=== PATIENT | female | born 1950 | race Caucasian/White ===

== ENCOUNTER → 2017-04-29 | Outpatient (CLI) | payer MEDICARE, BC | END | disposition home or self-care (01) | LOC: LABWHC1 13:36 | PROVIDERS: ATTEND Otolaryngology | DX: J30.89 Other allergic rhinitis (principal) | CPT/HCPCS: 36415 ==

== ENCOUNTER → 2018-04-14 | Outpatient (CLI) | payer MEDICARE, BC | END | disposition home or self-care (01) | LOC: LABWHC1 10:47 | PROVIDERS: ATTEND Otolaryngology | DX: Z53.9 Procedure and treatment not carried out, unspecified reason (principal) ==

== ENCOUNTER → 2018-09-04 | Outpatient (CLI) | payer MEDICARE, BC ==
[2018-09-04 13:56] VITALS: BP 159/67; PULSE 78; RESP 16; TEMP 97.8; BMI 16.7
--- NOTE | 2018-09-04 14:29 | P.GSHP ---
History of Present Illness H&P Date: 09/04/18 Chief Complaint: Abnormal left breast mammogram Nancy is a 67 year old white female who presented with a complaint of a nodular density in the left breast. She had bilateral mammograms performed in May 2018. On these radiographs there was a nodule noted in the left breast. She subsequently in June 2018 underwent diagnostic films of this area. This revealed a persistent oval nodular density in the upper outer aspect of the left breast. In July 2018 she underwent an ultrasound of this area which revealed the area of concern to be consistent with a cyst and the recommendation was a benign finding normal interval follow-up. The patient does not feel a specific mass right now in her breast. Of concern is the fact that she has been on Prempro for approximately 20 years. She states that she knows her breasts are dense and that she develops cyst in relationship to this. She has no history of any trauma or infection in her breast. Family history: 1. paternal cousin: breast cancer Hormonal history: Menarche: 15 Pregnancies: 0 Menopause: Started in the early 40s control pills: Negative Hormones: estrogen for over 20 years is still taking hormones (hot flashes) Past Surgical History: 1. D&C several Past Medical History: 1. HTN 2. arthritis 3. Osteopenia Social History smoke: none Alcohol: Negative Drugs: Negative - Constitutional Comment: BMI 16.8 Constitutional: Reports sweats - EENT Eyes: denies blurred vision, denies pain Ears: deny: decreased hearing, tinnitus Ears, nose, mouth and throat: Denies headache, Denies sore throat - Breasts Breasts: bilateral: as per HPI - Cardiovascular Cardiovascular: Reports high blood pressure - Respiratory Respiratory: Denies cough, Denies 7 - Gastrointestinal Gastrointestinal: Denies abdominal pain, Denies diarrhea, Denies nausea, Denies vomiting - Genitourinary (Female) Genitourinary: Denies dysuria, Denies hematuria - Menstruation Menstruation: Reports postmenopausal - Musculoskeletal Comment: arthritis - Integumentary Comment: skin cancer Integumentary: Denies pruritus, Denies rash - Neurological Neurological: Denies numbness, Denies weakness - Psychiatric Psychiatric: Reports anxiety, Denies depression - Endocrine Endocrine: Reports weight change, Denies fatigue - Hematologic/Lymphatic Comment: aspirin intermittently - Allergic/Immunologic Comment: food allergies Allergic/Immunologic: Reports seasonal allergies Past Medical History Past Medical History: Hyperlipidemia, Hypertension Additional Past Medical History / Comment(s): HX IBS History of Any Multi-Drug Resistant Organisms: None Reported Additional Past Surgical History / Comment(s): SINUS SX, D&C, Past Anesthesia/Blood Transfusion Reactions: Postoperative Nausea & Vomiting ( PONV) Additional Past Anesthesia/Blood Transfusion Reaction / Comment(s): STATES WAS ABLE TO HEAR AND FEEL LAST COLONOSCOPY FOR 5-7 SECONDS BEFORE SHE WENT OUT Smoking Status: Never smoker Medications and Allergies Home Medications Medication Instructions Recorded Confirmed Type Aspirin 81 mg PO DAILY 04/17/15 04/17/15 History James Cit/Mag/D3/Zn/Concession Stand Attendant/Quintin/Bor 1 tab PO DAILY 04/17/15 04/17/15 History [Citracal-Vit D + Magnesium Tab] Estrogen,Con/M-Progest Acet 0.5 tab PO DIRECTED 04/17/15 04/19/15 History [Prempro 0.3 mg-1.5 mg Tablet] Lisinopril [Zestril] 5 mg PO DAILY 04/17/15 04/19/15 History Meloxicam [Mobic] 7.5 mg PO DIRECTED PRN 04/17/15 04/17/15 History Denosumab [Prolia] 60 mg SQ ONCE 09/04/18 09/04/18 History Allergies Allergy/AdvReac Type Severity Reaction Status Date / Time nebivolol HCl [From Bystolic] Allergy Cough Verified 04/17/15 11:02 ibuprofen AdvReac STOMACH Verified 04/17/15 11:01 UPSET BONE DENSITY MEDS AdvReac STOMACH Uncoded 04/17/15 11:03 UPSET FOBIC AdvReac STOMACH Uncoded 04/17/15 11:02 UPSET Surgical - Exam Vital Signs Temp Pulse Resp BP Pulse Ox 97.8 F 78 16 159/67 97 09/04/18 13:47 09/04/18 13:47 09/04/18 13:47 09/04/18 13:47 09/04/18 13:47 BMI 16.8 - General well developed, well nourished, no distress - Eyes normal ocular movement, no icteric - ENT no hearing loss, no congestion - Neck no masses, trachea midline - Respiratory normal respiratory effort, clear to auscultation - Cardiovascular Rhythm: regular Heart Sounds: normal: S1, S2 - Abdomen Abdomen: soft, non tender, no guarding, no rigid, no rebound - Neurologic no disoriented, no combative - Musculoskeletal normal gait, normal posture - Psychiatric oriented to time, oriented to person, oriented to place, speech is normal, memory intact Breast exam: Right breast: Multi-positional exam dense breast no dominant masses or nodules of concern Right axilla: No adenopathy of concern Left breast: Multiple positional exam no dominant masses or nodules of concern Left axilla: No adenopathy of concern Both breasts are dense Results Review of radiographs Assessment and Plan Assessment: Impression: 1. Bilateral dense breast 2. Radiographic abnormality in left breast appears to be cyst 3. Patient has been on hormone replacement for approximately 20 years 4. Hypertension Plan: 1. Repeat bilateral mammogram May 2019 with physician appointment at that time 2. Consult with primary care doctor regarding stopping hormone replacement therapy 3. Medical management of medical conditions Cc: Dr. Sainz
== END | disposition home or self-care (01) ==
LOC: WWCWWP 13:32
PROVIDERS: ATTEND Surgery
DX: Z53.9 Procedure and treatment not carried out, unspecified reason (principal)

== ENCOUNTER → 2019-03-10 | Outpatient (CLI) | payer MEDICARE, BC ==
[2019-03-10 10:44] LABS: Basophils % (A) 0 %; Eosinophils # (A) 0.2 k/uL (0-0.7); Eosinophils % (A) 2 %; HCT 46.9 % (34.0-46.0); HGB 14.7 gm/dL (11.4-16.0); Lymphocytes # (A) 2.2 k/uL (1.0-4.8); Lymphocytes % (A) 34 %; MCH 29.6 pg (25.0-35.0); MCHC 31.4 g/dL (31.0-37.0); MCV 94.1 fL (80.0-100.0); Mean Platelet Volume 7.3; Monocytes # (A) 0.5 k/uL (0-1.0); Monocytes % (A) 7 %; Neutrophils # (A) 3.4 k/uL (1.3-7.7); Neutrophils % (A) 54 %; Platelet Count 189 k/uL (150-450); RBC 4.99 m/uL (3.80-5.40); RDW 12.4 % (11.5-15.5); WBC 6.4 k/uL (3.8-10.6)
[2019-03-10 11:33] LABS: Appearance,Urine Clear (Clear); Bilirubin,Urine Negative (Negative); Blood,Urine Small (Negative); Color,Urine Yellow; Glucose,Urine (UA) Negative (Negative); Ketones,Urine Negative (Negative); Leukocyte Esterase,Urine Moderate (Negative); Nitrite,Urine Negative (Negative); Protein,Urine Negative (Negative); RBC,Urine 3 /hpf (0-5); Specific Gravity,Urine 1.007 (1.001-1.035); Squamous Epithelial Cell,Urine 3 /hpf (0-4); Urobilinogen,Urine <2.0 mg/dL (<2.0)
[2019-03-10 13:03] LABS: Erythrocyte Sedimentation Rate 2 mm/hr (0-20)
[2019-03-10 17:53] LABS: African American GFR (CKD) 75.6 (60.0-200.0); Albumin 4.7 g/dL (3.80-4.90); Albumin/Globulin Ratio 2.24 (1.60-3.17); BUN/Creat Ratio 17.78 Ratio (12.00-20.00); Calcium 9.7 mg/dL (8.7-10.3); Globulin 2.1 g/dL (1.6-3.3); LDL Cholesterol,Calculated 69.8 mg/dL (0.0-131.0); Potassium 4.1 mmol/L (3.5-5.5); Total Bilirubin 0.8 mg/dL (0.2-1.2); Total Protein 6.8 g/dL (6.2-8.2); VLDL Calculation 13.2 mg/dL (5.00-40.00)
[2019-03-10 17:54] LABS: Iron Saturation 38.73 (12.00-45.00); Rheumatoid Factor 7 IU/mL (0-15)
[2019-03-10 18:01] LABS: Vitamin D 25 Hydroxy 56.1 ng/mL (30.0-100.0)
[2019-03-10 18:03] LABS: Folate, Serum >24.0 ng/mL; T4, Free (Free Thyroxine) 1.1 ng/dL (0.80-1.80)
== END | disposition home or self-care (01) ==
LOC: LABWHC1 09:32
PROVIDERS: ATTEND Family Medicine
DX: E78.5 Hyperlipidemia, unspecified (principal); M25.641 Stiffness of right hand, not elsewhere classified; R53.82 Chronic fatigue, unspecified; H11.9 Unspecified disorder of conjunctiva
CPT/HCPCS: 36415; 80053; 80061; 81001; 82306; 82550; 82607; 82672; 82728; 82746; 83540; 83550; 84439; 84443; 85025; 85652; 86038; 86431; 86850; 86900; 86901

== ENCOUNTER → 2019-04-05 | Outpatient (CLI) | payer MEDICARE, BC | END | disposition home or self-care (01) | LOC: LABWHC1 10:22 | PROVIDERS: ATTEND Otolaryngology | DX: J30.89 Other allergic rhinitis (principal) | CPT/HCPCS: 36415 ==

== ENCOUNTER → 2019-06-17 | Outpatient (CLI) | payer MEDICARE, BC ==
--- NOTE | 2019-06-17 09:48 | MM ---
Reason for exam: additional evaluation requested from prior study. Last mammogram was performed 2 years ago. History: Patient is postmenopausal. Family history of breast cancer in cousin at age 60. Taking estrogen beginning at age 42. Taking progesterone beginning at age 42. Physical Findings: Nurse did not find any significant physical abnormalities on exam. MG 3D Diag Mammo W/Cad GAMA Bilateral CC and MLO view(s) were taken. Prior study comparison: June 13, 2017, mammogram, performed at [facility]. The breast tissue is heterogeneously dense. This may lower the sensitivity of mammography. Stable benign calcifications. There is no discrete abnormality. No significant new findings when compared with previous films. These results were verbally communicated with the patient and result sheet given to the patient on 06/17/19. ASSESSMENT: Benign, BI-RAD 2 RECOMMENDATION: Routine screening mammogram of both breasts in 1 year.
== END | disposition home or self-care (01) ==
LOC: RADMAMWWP 09:04
PROVIDERS: ATTEND Surgery
DX: R92.8 Other abnormal and inconclusive findings on diagnostic imaging of breast (principal)
CPT/HCPCS: 77066; G0279; 77062

== ENCOUNTER → 2019-06-24 | Outpatient (CLI) | payer MEDICARE, BC ==
[2019-06-24 12:09] VITALS: BP 168/68; PULSE 85; RESP 16; TEMP 98.3; BMI 17.7
--- NOTE | 2019-06-24 12:23 | P.PN ---
Subjective Progress Note Date: 06/24/19 Principal diagnosis: " I have cyst in both breast" Nancy is a 68-year-old white female who was last seen in August 2018. At that time she was on Prempro and she had been on it for 20 years. On routine radiographic evaluation she was noted to have a cyst in her left breast. Since that time she has decreased the strength of the Prempro which she takes. She does not want to stop it completely however as her BMI is only 17.8 and she is concerned that she would not make any estrogen in her body as her fat content is very low. She had a recent mammogram performed on patient was bilateral benign by weighted 2 and repeat bilateral mammogram in 1 year was recommended. The patient states she continues to feel some nodularity in the left breast in the upper outer quadrant region. This has been chronic for at least the last year. She is not complaining of any pain in her breasts and less she presses on the area. With pressure on the area there is some mild tenderness. The tenderness does not radiate anyplace. The patient used to drink Coca-Cola but stopped 4 months ago. She does drink tea. She is chocolate on a regular basis. She does not smoke and is not exposed to secondhand smoke. She does use hormones Prempro. Family history: 1. paternal cousin: breast cancer Hormonal history: Menarche: 15 Pregnancies: 0 Menopause: Started in the early 40s control pills: Negative Hormones: estrogen for over 20 years is still taking hormones (hot flashes) Past Surgical History: 1. D&C several Past Medical History: 1. HTN 2. arthritis 3. Osteopenia Social History smoke: none Alcohol: Negative Drugs: Negative - Constitutional Comment: BMI 17.8 Constitutional: Reports sweats - EENT Eyes: denies blurred vision, denies pain Ears: deny: decreased hearing, tinnitus Ears, nose, mouth and throat: Denies headache, Denies sore throat - Breasts Breasts: bilateral: as per HPI - Cardiovascular Cardiovascular: Reports high blood pressure - Respiratory Respiratory: Denies cough, - Gastrointestinal Gastrointestinal: Denies abdominal pain, Denies diarrhea, Denies nausea, Denies vomiting - Genitourinary (Female) Genitourinary: Denies dysuria, Denies hematuria - Menstruation Menstruation: Reports postmenopausal - Musculoskeletal Comment: arthritis - Integumentary Comment: skin cancer Integumentary: Denies pruritus, Denies rash - Neurological Neurological: Denies numbness, Denies weakness - Psychiatric Psychiatric: Reports anxiety, Denies depression - Endocrine Endocrine: Reports weight change, Denies fatigue - Hematologic/Lymphatic Comment: aspirin intermittently - Allergic/Immunologic Comment: food allergies Allergic/Immunologic: Reports seasonal allergies Objective - Vital Signs Vital signs: Intake & Output 06/23/19 06/24/19 06/24/19 18:59 06:59 18:59 Weight 49.895 kg - Exam BMI 17.8 - Constitutional General appearance: Present: thin - EENT Eyes: Present: EOMI ENT: Present: hearing grossly normal - Neck Neck: Present: normal ROM - Respiratory Respiratory: bilateral: CTA - Cardiovascular Rhythm: regular Heart sounds: normal: S1, S2 - Gastrointestinal General gastrointestinal: Present: soft - Integumentary Integumentary: Present: normal turgor - Musculoskeletal Musculoskeletal: Present: gait normal - Psychiatric Psychiatric: Present: A&O x's 3, appropriate affect, intact judgment & insight - Additional findings Additional findings: breast exam: right breast: Multi-positional examination fibrocystic changes throughout the breast, no discrete dominant masses or nodules of concern Right axilla: Shotty adenopathy Left breast: Multi-positional examination fibrocystic changes throughout the breast slight increased fullness in the upper outer quadrant believed to be fibrocystic in nature no dominant masses or nodules of concern Left axilla: Shotty adenopathy Assessment and Plan Assessment: Impression: 1. Fibrocystic breast changes 2. Increased breast tissue upper outer quadrant left breast believed to be fibrocystic in nature no discrete lesion noted the fullness in this area 3. Bilateral shotty axillary adenopathy non-worrisome 4. Family history of cancer 5. HTN 6. patient on Prempro which she is decreasing, drinks caffeinated beverages, he needs chocolate Plan: 1. Patient will continue to decrease her Prempro level 2. Have discussed decreasing caffeinated beverages 3. Repeat bilateral mammogram in 1 year with physician exam at that time 4. Patient should call immediately if any questions of concern It is getting have discussed the caffeinated beverages the patient takes as well as the prempro and chocolate. The patient understands that this may be exacerbating her breast fibrocystic changes and discomfort. The patient is going to consider decreasing this activity. Additionally she is going to consider decreasing her Prempro. Cc: DR. Sainz
== END ==
LOC: WWCWWP 11:20
PROVIDERS: ATTEND Surgery
DX: Z53.9 Procedure and treatment not carried out, unspecified reason (principal)

== ENCOUNTER → 2020-06-19 | Outpatient (CLI) | payer MEDICARE, OTHER ==
--- NOTE | 2020-06-20 13:45 | MM ---
Reason for exam: screening (asymptomatic). Last mammogram was performed 1 year ago. History: Patient is postmenopausal. Family history of breast cancer in cousin at age 60. Taking estrogen beginning at age 42. Taking progesterone beginning at age 42. Physical Findings: A clinical breast exam by your physician is recommended on an annual basis and results should be correlated with mammographic findings. MG 3D Screening Mammo W/Cad Bilateral CC, MLO, and XCCL view(s) were taken. Prior study comparison: June 17, 2019, bilateral MG 3d diag mammo w/cad GAMA. June 13, 2017, mammogram, performed at [facility]. The breast tissue is extremely dense which could obscure a lesion on mammography. Benign appearing bilateral calcifications. No significant changes when compared with prior studies. ASSESSMENT: Benign, BI-RAD 2 RECOMMENDATION: Routine screening mammogram of both breasts in 1 year.
== END | disposition home or self-care (01) ==
LOC: RADMAMWWP 09:04
PROVIDERS: ATTEND Surgery
DX: Z12.31 Encounter for screening mammogram for malignant neoplasm of breast (principal)
CPT/HCPCS: 77063; 77067

== ENCOUNTER → 2020-06-23 | Outpatient (CLI) | payer MEDICARE, OTHER ==
[2020-06-23 11:40] VITALS: BP 166/78; PULSE 73; RESP 18; TEMP 98.2
--- NOTE | 2020-06-23 11:50 | P.PN ---
Subjective Progress Note Date: 06/23/20 Principal diagnosis: fibrocystic breast changes Nancy is a 69-year-old white female with a history of fibrocystic breast changes. She has been on Prempro for approximately 21 years. She is on a low dose at this time and takes is secondary to sweats. She has not noted a new christopher mps masses or nodules in her breast. She is not complaining of any nipple discharge or skin changes. She has had no history of recent trauma or infection in the breast. She has not had any breast biopsies. She she had a bilateral mammogram performed on which was benign BIRADS 2. Family history: 1. paternal cousin: breast cancer Hormonal history: Menarche: 15 Pregnancies: 0 Menopause: Started in the early 40s control pills: Negative Hormones: estrogen for over 20 years is still taking hormones (hot flashes) Past Surgical History: 1. D&C several Past Medical History: 1. HTN 2. arthritis 3. Osteopenia Social History smoke: none Alcohol: Negative Drugs: Negative - Constitutional Comment: Constitutional: Reports sweats improved - EENT Eyes: denies blurred vision, denies pain Ears: deny: decreased hearing, tinnitus Ears, nose, mouth and throat: Denies headache, Denies sore throat - Breasts Breasts: bilateral: as per HPI - Cardiovascular Cardiovascular: Reports high blood pressure, palpitations in the past - Respiratory Respiratory: Denies cough, - Gastrointestinal Gastrointestinal: Denies abdominal pain, Denies diarrhea, Denies nausea, Denies vomiting - Genitourinary (Female) Genitourinary: Denies dysuria, Denies hematuria - Menstruation Menstruation: Reports postmenopausal - Musculoskeletal Comment: osteo-arthritis - Integumentary Comment: skin cancer basal cell follows with dermatology Integumentary: Denies pruritus, Denies rash - Neurological Neurological: Denies numbness, Denies weakness - Psychiatric Psychiatric: Reports anxiety, Denies depression - Endocrine Endocrine: Reports weight change, Denies fatigue - Hematologic/Lymphatic Comment: aspirin intermittently - Allergic/Immunologic Comment: food allergies Allergic/Immunologic: Reports seasonal allergies Objective - Vital Signs Vital signs: Intake & Output 06/22/20 06/23/20 06/23/20 18:59 06:59 18:59 Weight 50.802 kg - Exam BMI 18.1 - Constitutional General appearance: Present: average body habitus - EENT Eyes: Present: EOMI ENT: Present: hearing grossly normal - Neck Neck: Present: normal ROM - Respiratory Respiratory: bilateral: CTA - Cardiovascular Rhythm: regular Heart sounds: normal: S1, S2 - Gastrointestinal General gastrointestinal: Present: normal bowel sounds, soft - Integumentary Integumentary: Present: normal turgor - Musculoskeletal Musculoskeletal: Present: gait normal - Psychiatric Psychiatric: Present: A&O x's 3, appropriate affect, intact judgment & insight - Additional findings Additional findings: breast exam: BRA: 32B Inspection: Bilateral grade 1/2 ptosis Palpation: Right breast: Multiple positional exam no dominant masses or nodules of concern fibrocystic changes Right axilla: No adenopathy of concern left breast: Multiple positional exam no dominant masses or nodules of concern fibrocystic changes Left axilla: No adenopathy of concern Assessment and Plan Assessment: Impression: 1. Bilateral fibrocystic breast changes 2. Nothing which would warrant interventional biopsy 3. Stable mammogram from [id number] Plan: 1. Bilateral mammogram 1 year with physician exam at that time 2. Patient call sooner if any questions or concerns CC: Dr. Sainz encounter 15 minutes > 50% of time in planning and counseling
== END | disposition home or self-care (01) ==
LOC: WWCWWP 11:26
PROVIDERS: ATTEND Surgery
DX: Z53.9 Procedure and treatment not carried out, unspecified reason (principal)

== ENCOUNTER → 2021-08-09 | Outpatient (CLI) | payer MEDICARE, OTHER ==
--- NOTE | 2021-08-13 10:07 | MM ---
Reason for exam: screening (asymptomatic). Last mammogram was performed 1 year and 2 months ago. History: Patient is postmenopausal. Family history of breast cancer in cousin at age 60. Taking estrogen beginning at age 42. Taking progesterone beginning at age 42. Physical Findings: A clinical breast exam by your physician is recommended on an annual basis and results should be correlated with mammographic findings. MG 3D Screening Mammo W/Cad Bilateral CC and MLO view(s) were taken. Prior study comparison: June 19, 2020, bilateral MG 3d screening mammo w/cad. June 17, 2019, bilateral MG 3d diag mammo w/cad GAMA. The breast tissue is heterogeneously dense. This may lower the sensitivity of mammography. No significant changes when compared with prior studies. ASSESSMENT: Benign, BI-RAD 2 RECOMMENDATION: Routine screening mammogram of both breasts in 1 year. Patient should continue monthly self breast exams. A negative report should not preclude additional follow up of suspicious palpable abnormalities.
== END | disposition home or self-care (01) ==
LOC: RADMAMWWP 14:40
PROVIDERS: ATTEND Surgery
DX: Z12.31 Encounter for screening mammogram for malignant neoplasm of breast (principal)
CPT/HCPCS: 77063; 77067

== ENCOUNTER → 2021-08-16 | Outpatient (CLI) | payer MEDICARE, OTHER ==
[2021-08-16 13:48] VITALS: PULSE 90; RESP 16; TEMP 99
--- NOTE | 2021-08-16 14:03 | P.PN ---
Subjective Progress Note Date: 08/16/21 Principal diagnosis: fibrocystic breast disease fibrocystic breast changes Nancy is a 70-year-old white female with a history of fibrocystic breast changes. She has been on Prempro for approximately 22 years, she takes it QOD. She is on a low dose at this time and takes is secondary to sweats. She has not noted a new lumps masses or nodules in her breast. She is not complaining of any nipple discharge or skin changes. She has had no history of recent trauma or infection in the breast. She has not had any breast biopsies. She she had a bilateral mammogram performed on 08-09-21 which was benign BIRADS 2 on draft form. Family history: 1. paternal cousin: breast cancer Hormonal history: Menarche: 15 Pregnancies: 0 Menopause: Started in the early 40s control pills: Negative Hormones: estrogen for over 20 years is still taking hormones (hot flashes) Past Surgical History: 1. D&C several Past Medical History: 1. HTN 2. arthritis 3. Osteopenia Social History smoke: none Alcohol: Negative Drugs: Negative - Constitutional Comment: Constitutional: Reports sweats improved - EENT Eyes: denies blurred vision, denies pain Ears: deny: decreased hearing, tinnitus Ears, nose, mouth and throat: Denies headache, Denies sore throat - Breasts Breasts: bilateral: as per HPI - Cardiovascular Cardiovascular: Reports high blood pressure, palpitations in the past - Respiratory Respiratory: Denies cough, - Gastrointestinal Gastrointestinal: Denies abdominal pain, Denies diarrhea, Denies nausea, Denies vomiting - Genitourinary (Female) Genitourinary: Denies dysuria, Denies hematuria - Menstruation Menstruation: Reports postmenopausal - Musculoskeletal Comment: osteo-arthritis - Integumentary Comment: skin cancer basal cell follows with dermatology Integumentary: Denies pruritus, Denies rash - Neurological Neurological: Denies numbness, Denies weakness - Psychiatric Psychiatric: Reports anxiety, Denies depression - Endocrine Endocrine: Reports weight change, Denies fatigue - Hematologic/Lymphatic Comment: aspirin intermittently - Allergic/Immunologic Comment: food allergies Allergic/Immunologic: Reports seasonal allergies Objective - Vital Signs Vital signs: Vital Signs Temp 99.0 F 08/16/21 13:42 Pulse 90 08/16/21 13:42 Resp 16 08/16/21 13:42 BP Pulse Ox Intake & Output 08/15/21 08/16/21 08/16/21 18:59 06:59 18:59 Weight 52.163 kg - Constitutional General appearance: Present: cooperative - EENT Eyes: Present: EOMI ENT: Present: hearing grossly normal - Neck Neck: Present: normal ROM - Respiratory Respiratory: bilateral: CTA - Cardiovascular Rhythm: regular Heart sounds: normal: S1, S2 - Gastrointestinal General gastrointestinal: Present: soft - Integumentary Integumentary: Present: normal turgor - Musculoskeletal Musculoskeletal: Present: gait normal - Psychiatric Psychiatric: Present: A&O x's 3, appropriate affect, intact judgment & insight - Additional findings Additional findings: Breast Exam: BRA: 32B Inspection: Bilateral grade 1/2 ptosis Palpation: Right breast: Multi-positional exam fibrocystic changes no dominant masses or nodules of concern Right axilla: No adenopathy of concern Left breast: Multi-positional exam fibrocystic changes no dominant masses or nodules of concern Left axilla: No adenopathy of concern Assessment and Plan Assessment: Impression: Fibrocystic breast changes Plan: Repeat bilateral mammogram in 1 year Cc: Dr. Sainz
== END | disposition home or self-care (01) ==
LOC: WWCWWP 13:27
PROVIDERS: ATTEND Surgery
DX: Z53.9 Procedure and treatment not carried out, unspecified reason (principal)

== ENCOUNTER → 2021-10-04 | Outpatient (CLI) | payer MEDICARE, OTHER ==
[~2021-10-04] MED LIST: DENOSUMAB 60 MG/ML 1 ML SYRINGE SQ NR
[2021-10-04 10:21] VITALS: BP 192/72; PULSE 91; RESP 15; TEMP 98
== END ==
LOC: PROCWHC3 10:04
PROVIDERS: ATTEND Family Medicine
DX: M81.0 Age-related osteoporosis without current pathological fracture (principal); Z88.6 Allergy status to analgesic agent; Z88.8 Allergy status to other drugs, medicaments and biological substances
CPT/HCPCS: 96372; J0897

== ENCOUNTER → 2022-04-04 | Outpatient (CLI) | payer MEDICARE, OTHER ==
[2022-04-04 10:08] VITALS: BP 169/79; PULSE 83; RESP 15; TEMP 98.1
== END ==
LOC: PROCWHC3 09:48
PROVIDERS: ATTEND Family Medicine
DX: M81.0 Age-related osteoporosis without current pathological fracture (principal); Z88.6 Allergy status to analgesic agent; Z88.8 Allergy status to other drugs, medicaments and biological substances
CPT/HCPCS: 96372; J0897

== ENCOUNTER → 2022-04-25 | Outpatient (CLI) | payer MEDICARE, OTHER ==
--- NOTE | 2022-04-25 16:00 | US ---
EXAMINATION TYPE: US kidneys/renal and bladder DATE OF EXAM: 04/25/2022 COMPARISON: NONE CLINICAL HISTORY: 71-year-old female N18.9 CHRONIC KIDNEY DISEASE, UNSPECIFIED. TECHNIQUE: Multiple sonographic images of the kidneys and bladder are obtained. FINDINGS: EXAM MEASUREMENTS: Right Kidney: 10.4 x 3.9 x 4.2 cm Left Kidney: 8.8 x 4.1 x 4.0 cm Right Kidney: Mild pelviectasis. No renal calculus. No calyceal dilatation to suggest margarito hydroneph rosis. Left Kidney: No hydronephrosis or masses seen Bladder: Within normal limits. Bilateral Jets seen: Yes IMPRESSION: 1. Mild right-sided pelviectasis, probably transient. No calyceal dilatation to suggest margarito hydrone phrosis. A short interval follow-up can be considered. 2. Both ureteral jets are visualized.
== END | disposition home or self-care (01) ==
LOC: RADUSWWP 13:17
PROVIDERS: ATTEND Family Medicine
DX: N18.9 Chronic kidney disease, unspecified (principal)
CPT/HCPCS: 76770

== ENCOUNTER → 2022-08-12 | Outpatient (CLI) | payer MEDICARE, OTHER ==
--- NOTE | 2022-08-13 08:40 | MM ---
Reason for Exam: Screening (asymptomatic). Last screening mammogram was performed 12 month(s) ago. Patient History: Menarche at age 16. Postmenopausal. Currently using Estrogen, starting at age 42. Currently using Progesterone, starting at age 42. Paternal cousin had breast cancer, age 60. Risk Values: Marzena 5 year model risk: 1.2%. NCI Lifetime model risk: 3.0%. Prior Study Comparison: 06/17/2019 Bilateral Diagnostic Mammogram, [facility]. 06/19/2020 Bilateral Screening Mammogram, [facility]. 08/09/2021 Bilateral Screening Mammogram, [facility]. Tissue Density: The breast tissue is extremely dense which could obscure a lesion on mammography. Findings: Analyzed By CAD. There are a few scattered benign-appearing round calcifications redemonstrated throughout the bilateral breasts. There is no suspicious new group of microcalcifications or new suspicious mass in either breast. Overall Assessment: Benign, BI-RAD 2 Management: Screening Mammogram of both breasts in 1 year. Some advise bilateral breast ultrasound surveillance in patients with background dense tissue. A clinical breast exam by your physician is recommended on an annual basis and results should be correlated with mammographic findings. Electronically signed and approved by: Hao Zaldivar M.D.
== END | disposition home or self-care (01) ==
LOC: RADMAMWWP 09:44
PROVIDERS: ATTEND Surgery
DX: Z12.31 Encounter for screening mammogram for malignant neoplasm of breast (principal); Z78.0 Asymptomatic menopausal state; Z80.3 Family history of malignant neoplasm of breast
CPT/HCPCS: 77063; 77067

== ENCOUNTER → 2022-08-16 | Outpatient (CLI) | payer MEDICARE, OTHER ==
[2022-08-16 11:41] VITALS: BP 177/80; PULSE 111; RESP 18; TEMP 98.4
--- NOTE | 2022-08-16 11:56 | P.PN ---
Subjective Progress Note Date: 08/16/22 fibrocystic breast changes Nancy is a 71-year-old white female with a history of fibrocystic breast c hanges. She has been on Prempro for approximately 22 years, she takes it QOD. She is on a low dose at this time and takes is secondary to sweats. She has not noted a new lumps masses or nodules in her breast. She is not complaining of any nipple discharge or skin changes. She has had no history of recent trauma or infection in the breast. She has not had any breast biopsies. She she had a bilateral mammogram performed on 08-12-22 which was benign BIRADS 2. 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 She is following with dermatology with respect to this. We have discussed whether Prempro could be deleterious for melanoma and I would recommend that she stop the Prempro until she talks with the microbiology technician. Family history: 1. paternal cousin: breast cancer Hormonal history: Menarche: 15 Pregnancies: 0 Menopause: Started in the early 40s control pills: Negative Hormones: estrogen for over 20 years is still taking hormones (hot flashes) Past Surgical History: 1. D&C several Past Medical History: 1. HTN 2. arthritis 3. Osteopenia Social History smoke: none Alcohol: Negative Drugs: Negative - Constitutional Comment: Constitutional: Reports sweats improved - EENT Eyes: denies blurred vision, denies pain Ears: deny: decreased hearing, tinnitus Ears, nose, mouth and throat: Denies headache, Denies sore throat - Breasts Breasts: bilateral: as per HPI - Cardiovascular Cardiovascular: Reports high blood pressure, palpitations in the past - Respiratory Respiratory: Denies cough, - Gastrointestinal Gastrointestinal: Denies abdominal pain, Denies diarrhea, Denies nausea, Denies vomiting - Genitourinary (Female) Genitourinary: Denies dysuria, Denies hematuria - Menstruation Menstruation: Reports postmenopausal - Musculoskeletal Comment: osteo-arthritis - Integumentary Comment: skin cancer basal cell follows with dermatology Integumentary: Denies pruritus, Denies rash - Neurological Neurological: Denies numbness, Denies weakness - Psychiatric Psychiatric: Reports anxiety, Denies depression - Endocrine Endocrine: Reports weight change, Denies fatigue - Hematologic/Lymphatic Comment: aspirin intermittently - Allergic/Immunologic Comment: food allergies Allergic/Immunologic: Reports seasonal allergies Objective - Vital Signs Vital signs: Vital Signs Temp 98.4 F 08/16/22 11:37 Pulse 111 H 08/16/22 11:37 Resp 18 08/16/22 11:37 BP 177/80 08/16/22 11:37 Pulse Ox 97 08/16/22 11:37 FiO2 Intake & Output 08/15/22 08/16/22 08/16/22 18:59 06:59 18:59 Weight 53.524 kg - Constitutional General appearance: Present: cooperative - EENT Eyes: Present: edentulous ENT: Present: hearing grossly normal - Neck Neck: Present: normal ROM - Respiratory Respiratory: bilateral: CTA - Cardiovascular Heart sounds: normal: S1, S2 - Integumentary Integumentary Comment(s): Healing spot right scalp which was removed by dermatology and patient was told this was a melanoma she is following with dermatology with respect to this - Musculoskeletal Musculoskeletal: Present: gait normal - Psychiatric Psychiatric: Present: A&O x's 3, appropriate affect, intact judgment & insight - Additional findings Additional findings: Breast Exam: BRA: 34A Inspection: grade 2 ptosis palpation: Breasts: Multiple positional exam fibrocystic changes no dominant masses or nodules of concern Right axilla: No adenopathy of concern Left breast: Multi-positional exam fibrocystic changes no dominant masses or nodules of concern Left axilla: No adenopathy of concern
== END | disposition home or self-care (01) ==
LOC: WWCWWP 11:32
PROVIDERS: ATTEND Surgery
DX: Z53.9 Procedure and treatment not carried out, unspecified reason (principal)

== ENCOUNTER → 2022-10-10 | Outpatient (CLI) | payer MEDICARE, OTHER ==
[2022-10-10 10:20] VITALS: BP 154/79; PULSE 87; RESP 16; TEMP 98.4
== END ==
LOC: PROCWHC3 09:56
PROVIDERS: ATTEND Family Medicine
DX: M81.0 Age-related osteoporosis without current pathological fracture (principal); Z88.8 Allergy status to other drugs, medicaments and biological substances; Z88.6 Allergy status to analgesic agent; Z88.5 Allergy status to narcotic agent
CPT/HCPCS: 96372; J0897

== ENCOUNTER → 2023-04-10 | Outpatient (CLI) | payer MEDICARE, OTHER ==
[2023-04-10 14:43] VITALS: BP 181/80; PULSE 74; RESP 16; TEMP 97.9
== END ==
LOC: PROCWHC3 14:07
PROVIDERS: ATTEND Family Medicine
DX: M81.0 Age-related osteoporosis without current pathological fracture (principal)
CPT/HCPCS: 96372; J0897

== ENCOUNTER → 2023-08-14 | Outpatient (CLI) | payer MEDICARE, OTHER ==
--- NOTE | 2023-08-15 09:25 | MM ---
Reason for Exam: Screening (asymptomatic). Last screening mammogram was performed 12 month(s) ago. Patient History: Menarche at age 16. Patient has no children. Postmenopausal. Currently using Estrogen, starting at age 42. Currently using Progesterone, starting at age 42. Paternal cousin had breast cancer, age 60. Risk Values: Marzena 5 year model risk: 1.8%. NCI Lifetime model risk: 4.4%. Prior Study Comparison: 06/13/2017 Screening Mammogram, [facility]. 06/17/2019 Bilateral Diagnostic Mammogram, [facility] 06/19/2020 Bilateral Screening Mammogram, [facility]. 08/09/2021 Bilateral Screening Mammogram, [facility]. 08/12/2022 Bilateral MG 3D screening mammo w/cad, [facility]. Tissue Density: The breast tissue is heterogeneously dense. This may lower the sensitivity of mammography. Findings: Analyzed By CAD. There is no suspicious group of microcalcifications or new suspicious mass. Benign-appearing calcifications bilaterally. Overall Assessment: Benign, BI-RAD 2 Management: Screening Mammogram of both breasts in [address] [facility] will attempt to contact patient to return for supplemental views and ultrasound if indicated. Patient should continue monthly self-breast exams. A clinical breast exam by your physician is recommended on an annual basis. This exam should not preclude additional follow-up of suspicious palpable abnormalities. Note on Marzena scores and lifetime risk: 1. A Marzena score greater than 3% is considered moderate risk. If this is the case, consider specialist referral to assess eligibility for a risk reducing agent. 2. If overall lifetime risk for the development of breast cancer is 20% or higher, the patient may qualify for future screening with alternating mammogram and breast MRI. Electronically signed and approved by: Aime Serrato DO
== END | disposition home or self-care (01) ==
LOC: RADMAMWWP 09:04
PROVIDERS: ATTEND Surgery
DX: Z12.31 Encounter for screening mammogram for malignant neoplasm of breast (principal); Z78.0 Asymptomatic menopausal state; Z80.3 Family history of malignant neoplasm of breast
CPT/HCPCS: 77063; 77067

== ENCOUNTER → 2023-08-28 | Outpatient (CLI) | payer MEDICARE, OTHER ==
[2023-08-28 08:03] VITALS: BP 161/80; PULSE 87; RESP 18; TEMP 98.4
--- NOTE | 2023-08-28 08:29 | P.PN ---
Subjective Progress Note Date: 08/28/23 Principal diagnosis: Fibrocystic breast changes Subjective Nancy is a 72-year-old white female with a history of fibrocystic breast changes. She had been on Prempro for approximately 22 years, she took it QOD. She has been off it for 1 year. She has not noted a new lumps masses or nodules in her breast. She is not complaining of any nipple discharge or skin changes. She has had no history of recent trauma or infection in the breast. She has not had any breast biopsies. She she had a bilateral mammogram performed on 08-14-23 which was benign BIRADS 2. She was a year ago that she had a melanoma of her right scalp. However when she went to the surgeon he stated that it was a carcinoma. She had Mohs surgery performed. She is following with dermatology with respect to this. Family history: 1. paternal cousin: breast cancer 2. sister: Non-Hodgkin's lymphoma, 2022 3. paternal aunt: pancreatic cancer in her 's Hormonal history: Menarche: 15 Pregnancies: 0 Menopause: Started in the early 40s control pills: Negative Hormones: estrogen for over 20 years is still taking hormones (hot flashes) Past Surgical History: 1. D&C several Past Medical History: 1. HTN 2. arthritis 3. Osteopenia Social History smoke: none Alcohol: Negative Drugs: Negative - Constitutional Comment: Constitutional: Reports sweats improved - EENT Eyes: denies blurred vision, denies pain Ears: deny: decreased hearing, tinnitus Ears, nose, mouth and throat: Denies headache, Denies sore throat - Breasts Breasts: bilateral: as per HPI - Cardiovascular Cardiovascular: Reports high blood pressure, palpitations in the past - Respiratory Respiratory: Denies cough, - Gastrointestinal Gastrointestinal: Denies abdominal pain, Denies diarrhea, Denies nausea, Denies vomiting - Genitourinary (Female) Genitourinary: Denies dysuria, Denies hematuria - Menstruation Menstruation: Reports postmenopausal - Musculoskeletal Comment: osteo-arthritis - Integumentary Comment: skin cancer basal cell follows with dermatology Integumentary: Denies pruritus, Denies rash - Neurological Neurological: Denies numbness, Denies weakness - Psychiatric Psychiatric: Reports anxiety, Denies depression - Endocrine Endocrine: Reports weight change, Denies fatigue - Hematologic/Lymphatic Comment: aspirin intermittently - Allergic/Immunologic Comment: food allergies Allergic/Immunologic: Reports seasonal allergies Objective - Vital Signs Vital signs: Vital Signs Temp 98.4 F 08/28/23 07:42 Pulse 87 08/28/23 07:42 Resp 18 08/28/23 07:42 BP 161/80 08/28/23 07:42 Pulse Ox 97 08/28/23 07:42 FiO2 Intake & Output 08/27/23 08/28/23 08/28/23 18:59 06:59 18:59 Weight 54.431 kg - Constitutional General appearance: Present: cooperative - EENT Eyes: Present: EOMI ENT: Present: hearing grossly normal - Neck Neck: Present: normal ROM - Respiratory Respiratory: bilateral: CTA - Cardiovascular Rhythm: regular Heart sounds: normal: S1, S2 - Integumentary Integumentary: Present: normal turgor - Musculoskeletal Musculoskeletal: Present: gait normal - Psychiatric Psychiatric: Present: A&O x's 3, appropriate affect, intact judgment & insight - Additional findings Additional findings: Breast examination: Inspection: Bilateral grade 2 ptosis Right breast: Multi-positional exam fibrocystic changes no dominant masses or nodules of concern Right axilla: No adenopathy of concern Left Breast: Multi-positional exam fibrocystic changes no dominant masses or nodules of concern Left axilla: No adenopathy of concern Cervical/axillary/groin adenopathy of concern No hepatomegaly or splenomegaly Assessment and Plan Assessment: Impression: Fibrocystic breast changes Recent bilateral mammogram 1116 benign BIRADS 2 right scalp carcinoma following with dermatology Plan: 1. Bilateral mammogram in 1 year with physician exam at that time
== END ==
LOC: WWCWWP 07:36
PROVIDERS: ATTEND Surgery
DX: Z12.31 Encounter for screening mammogram for malignant neoplasm of breast (principal); C43.4 Malignant melanoma of scalp and neck; I10 Essential (primary) hypertension; M85.80 Other specified disorders of bone density and structure, unspecified site; N60.19 Diffuse cystic mastopathy of unspecified breast; M19.90 Unspecified osteoarthritis, unspecified site; Z88.1 Allergy status to other antibiotic agents; Z88.3 Allergy status to other anti-infective agents; Z88.5 Allergy status to narcotic agent; Z88.6 Allergy status to analgesic agent; Z88.8 Allergy status to other drugs, medicaments and biological substances; Z79.899 Other long term (current) drug therapy

== ENCOUNTER → 2023-10-28 | Outpatient (CLI) | payer MEDICARE, OTHER ==
--- NOTE | 2023-10-29 11:46 | CA ---
Transthoracic Echo Report Name: Nancy Guillen Age: 72 Gender: F : 1950 Exam Date: 10/28/2023 13:20 Exam Location: [place] Echo Ht (in): 66 Wt (lb): 123 Ordering Physician: Paul Underwood MD Attending/Referring Phys: Paul Underwood MD Garage Worker Morena Byrnes [facility] Procedure CPT: Indications: I35.1 NONRHEUMATIC AORTIC (VALVE) INSUFFICIENCY Cardiac Hx: Technical Quality: Good Contrast 1: Total Dose (mL): Contrast 2: Total Dose (mL): MEASUREMENTS (Male / Female) Normal Values 2D ECHO LV Diastolic Diameter PLAX 3.2 cm 4.2 - 5.9 / 3.9 - 5.3 cm LV Systolic Diameter PLAX 1.9 cm IVS Diastolic Thickness 0.9 cm 0.6 - 1.0 / 0.6 - 0.9 cm LVPW Diastolic Thickness 1.0 cm 0.6 - 1.0 / 0.6 - 0.9 cm LV Relative Wall Thickness 0.6 RV Internal Dim ED PLAX 2.8 cm LA Systolic Diameter LX 2.7 cm 3.0 - 4.0 / 2.7 - 3.8 cm LV Diastolic Volume MOD BP 50.0 cm??? 67 - 155 / 56 - 104 cm??? LV Systolic Volume MOD BP 14.2 cm??? 22 - 58 / 19 - 49 cm??? LV Ejection Fraction MOD BP 71.5 % >= 55 % LV Cardiac Index MOD BP 1913.1 cm???/min???m??? LV Diastolic Volume MOD 4C 38.1 cm??? LV Systolic Volume MOD 4C 11.6 cm??? LV Ejection Fraction MOD 4C 69.7 % LV Cardiac Index MOD 4C 1418.7 cm???/min???m??? LV Diastolic Length 4C 6.1 cm LV Systolic Length 4C 4.8 cm LV Diastolic Volume MOD 2C 56.6 cm??? LV Systolic Volume MOD 2C 15.6 cm??? LV Ejection Fraction MOD 2C 72.4 % LV Cardiac Index MOD 2C 2189.9 cm???/min???m??? LV Diastolic Length 2C 7.1 cm LV Systolic Length 2C 5.7 cm LA Volume 30.8 cm??? 18 - 58 / 22 - 52 cm??? LA Volume Index 19.2 cm???/m??? 16 - 28 cm???/m??? M-MODE Aortic Root Diameter MM 2.6 cm MV E Point Septal Separation 0.3 cm AV Cusp Separation MM 1.9 cm DOPPLER AV Peak Velocity 159.3 cm/s AV Peak Gradient 10.2 mmHg AI Peak Velocity 463.6 cm/s AI Peak Gradient 86.0 mmHg AI Pressure Half Time 599.4 ms MV Area PHT 2.7 cm??? Mitral E Point Velocity 73.1 cm/s Mitral A Point Velocity 70.8 cm/s Mitral E to A Ratio 1.0 MV Deceleration Time 285.8 ms TR Peak Velocity 202.5 cm/s TR Peak Gradient 16.4 mmHg Right Ventricular Systolic Press 21.3 mmHg FINDINGS Left Ventricle Left ventricular ejection fraction is estimated at 55-60 %. Normal LV cavity size. Mild concentric LVH. No obvious regional wall motion abnormality Right Ventricle Normal right ventricular size. Right ventricular systolic pressure within normal limits. Right Atrium Normal right atrial size. Left Atrium Normal left atrial size. Mitral Valve Structurally normal mitral valve. No mitral stenosis, regurgitation or prolapse. Aortic Valve Trileaflet aortic valve. Mild to moderate aortic regurgitation. Tricuspid Valve Structurally normal tricuspid valve. Trace to mild tricuspid regurgitation. Pulmonic Valve Structurally normal pulmonic valve. No pulmonic regurgitation. Pericardium No pericardial effusion. Aorta Normal size aortic root and proximal ascending aorta. CONCLUSIONS Left ventricular ejection fraction is estimated at 55-60 %. Mild concentric LVH No obvious regional wall motion abnormality No pericardial effusion. Mild to moderate aortic regurgitation. Previewed by: Dr Brock Angel (Electronically Signed) Final Date: 29 October 2023 11:46
== END | disposition home or self-care (01) ==
LOC: RADECHMAIN 13:05
PROVIDERS: ATTEND Family Medicine
DX: I35.1 Nonrheumatic aortic (valve) insufficiency (principal); I51.7 Cardiomegaly
CPT/HCPCS: 93306

== ENCOUNTER → 2023-11-06 | Outpatient (CLI) | payer MEDICARE, OTHER ==
[2023-11-06] MEDS: DENOSUMAB 60 MG/ML 1 ML SYRINGE SQ NR (12:56)
[2023-11-06 13:04] VITALS: BP 168/71; PULSE 69; RESP 16; TEMP 98
== END ==
LOC: PROCWHC3 12:34
PROVIDERS: ATTEND Family Medicine
DX: M81.0 Age-related osteoporosis without current pathological fracture (principal)
CPT/HCPCS: 96372; J0897

== ENCOUNTER → 2024-05-10 | Outpatient (CLI) | payer MEDICARE, OTHER ==
[~2024-05-10] MED LIST changes: -DENOSUMAB 60 MG/ML 1 ML SYRINGE SQ NR; +DENOSUMAB 60 MG/ML 1 ML SYRINGE SQ ONE
== END | disposition home or self-care (01) ==
LOC: PROCWHC3 13:00
PROVIDERS: ATTEND Family Medicine
DX: M81.0 Age-related osteoporosis without current pathological fracture (principal)
CPT/HCPCS: 96372

== ENCOUNTER → 2024-08-16 | Outpatient (CLI) | payer MEDICARE, OTHER ==
--- NOTE | 2024-08-17 10:03 | MM ---
Reason for Exam: Screening (asymptomatic). Last screening mammogram was performed 12 month(s) ago. Patient History: Menarche at age 16. Patient has no children. Postmenopausal. Currently using Estrogen, starting at age 42. Currently using Progesterone, starting at age 42. Paternal cousin had breast cancer, age 60. Risk Values: Marzena 5 year model risk: 1.8%. NCI Lifetime model risk: 4.1%. Prior Study Comparison: 08/09/2021 Bilateral Screening Mammogram, [facility]. 08/12/2022 Bilateral MG 3D screening mammo w/cad, [facility]. 08/14/2023 Bilateral MG 3D screening mammo w/cad, [facility]. Tissue Density: The breasts are heterogeneously dense, which may obscure small masses. Findings: Analyzed By CAD. There is no suspicious group of microcalcifications or new suspicious mass in either breast. Overall Assessment: Benign, BI-RAD 2 Management: Screening Mammogram of both breasts in 1 year. . Patient should continue monthly self-breast exams. A clinical breast exam by your physician is recommended on an annual basis. This exam should not preclude additional follow-up of suspicious palpable abnormalities. Note on Marzena scores and lifetime risk: 1. A Marzena score greater than 3% is considered moderate risk. If this is the case, consider specialist referral to assess eligibility for a risk reducing agent. 2. If overall lifetime risk for the development of breast cancer is 20% or higher, the patient may qualify for future screening with alternating mammogram and breast MRI. [facility], , 08/17/2024 10:00 AM. Electronically signed and approved by: Darren Mike M.D. Radiologis
== END | disposition home or self-care (01) ==
LOC: RADMAMWWP 09:47
PROVIDERS: ATTEND Surgery
DX: Z12.31 Encounter for screening mammogram for malignant neoplasm of breast (principal); R92.333 Mammographic heterogeneous density, bilateral breasts; Z80.3 Family history of malignant neoplasm of breast; Z78.0 Asymptomatic menopausal state
CPT/HCPCS: 77063; 77067

== ENCOUNTER → 2024-08-20 | Outpatient (CLI) | payer MEDICARE, OTHER ==
[2024-08-20 11:26] VITALS: BP 148/81; PULSE 94; RESP 18; TEMP 98
--- NOTE | 2024-08-20 11:41 | P.PN ---
Subjective Progress Note Date: 08/20/24 Principal diagnosis: fibrocystic breast Principal diagnosis: Fibrocystic breast changes Subjective Nancy is a 73-year-old white female with a history of fibrocystic breast changes. She had been on Prempro for approximately 22 years, she took it QOD. She has been off it for 2 year. She has not noted a new lumps masses or nodules in her breast. She is not complaining of any nipple discharge or skin changes. She has had no history of recent trauma or infection in the breast. She has not had any breast biopsies. She she had a bilateral mammogram p erformed on 08-16-24 which was benign BIRADS 2. She has bone density followed with Dr. Underwood. 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 She is also complaining of hot flashes. She was told t o do a testosterone supplement. She had her estrogen checked about 4 years ago and very low. Cancer of right scalp ? type. She had Mohs surgery performed. She is following with dermatology with respect to this. Family history: 1. paternal cousin: breast cancer 2. sister: Non-Hodgkin's lymphoma, 2022 3. paternal aunt: pancreatic cancer in her 's 4. patient cancer of scalp Hormonal history: Menarche: 15 Pregnancies: 0 Menopause: Started in the early 40s control pills: Negative Hormones: estrogen for over 20 years is still taking hormones (hot flashes) Past Surgical History: 1. D&C several Past Medical History: 1. HTN 2. arthritis 3. Osteopenia Social History smoke: none Alcohol: Negative Drugs: Negative - Constitutional Comment: Constitutional: Reports sweats improved - EENT Eyes: denies blurred vision, denies pain Ears: deny: decreased hearing, tinnitus Ears, nose, mouth and throat: Denies headache, Denies sore throat - Breasts Breasts: bilateral: as per HPI - Cardiovascular Cardiovascular: Reports high blood pressure, palpitations in the past - Respiratory Respiratory: Denies cough, - Gastrointestinal Gastrointestinal: Denies abdominal pain, Denies diarrhea, Denies nausea, Denies vomiting - Genitourinary (Female) Genitourinary: Denies dysuria, Denies hematuria - Menstruation Menstruation: Reports postmenopausal - Musculoskeletal Comment: osteo-arthritis - Integumentary Comment: skin cancer basal cell follows with dermatology Integumentary: Denies pruritus, Denies rash - Neurological Neurological: Denies numbness, Denies weakness - Psychiatric Psychiatric: Reports anxiety, Denies depression - Endocrine Endocrine: Reports weight change, Denies fatigue - Hematologic/Lymphatic Comment: aspirin intermittently - Allergic/Immunologic Comment: food allergies Allergic/Immunologic: Reports seasonal allergies Objective - Vital Signs Vital signs: Vital Signs Temp 98.0 F 08/20/24 11:23 Pulse 94 08/20/24 11:23 Resp 18 08/20/24 11:23 BP 148/81 08/20/24 11:23 Pulse Ox 97 08/20/24 11:23 FiO2 Intake & Output 08/19/24 08/20/24 08/20/24 18:59 06:59 18:59 Weight 56.699 kg - Constitutional General appearance: Present: cooperative - EENT Eyes: Present: EOMI ENT: Present: hearing grossly normal - Neck Neck: Present: normal ROM - Respiratory Respiratory: bilateral: CTA - Cardiovascular Rhythm: regular Heart sounds: normal: S1, S2 - Gastrointestinal General gastrointestinal: Present: soft - Integumentary Integumentary: Present: normal turgor - Musculoskeletal Musculoskeletal: Present: gait normal - Psychiatric Psychiatric: Present: A&O x's 3, appropriate affect, intact judgment & insight - Additional findings Additional findings: Breast examination: Inspection: Bilateral grade 2 ptosis Right breast: Multi-positional exam fibrocystic changes no dominant masses or nodules of concern Right axilla: No adenopathy of concern Left Breast: Multi-positional exam fibrocystic changes no dominant masses or nodules of concern Left axilla: No adenopathy of concern no Cervical/axillary/groin adenopathy of concern No hepatomegaly or splenomegaly Assessment and Plan Assessment: Impression: Fibrocystic breast changes Recent bilateral mammogram 1118-24 benign BIRADS 2 right scalp carcinoma following with dermatology Plan: 1. Bilateral mammogram in 1 year, July 2025 with physician exam at that time 2. we have had a discussion about if she could take testosterone, I told her I am uncertain about the effects on the breast she will discuss this with Dr. Underwood Additional CC's: Paul Underwood
== END ==
LOC: WWCWWP 10:27
PROVIDERS: ATTEND Surgery
DX: R92.8 Other abnormal and inconclusive findings on diagnostic imaging of breast (principal); N60.11 Diffuse cystic mastopathy of right breast; N60.12 Diffuse cystic mastopathy of left breast; C44.41 Basal cell carcinoma of skin of scalp and neck; Z88.8 Allergy status to other drugs, medicaments and biological substances; Z88.6 Allergy status to analgesic agent

== ENCOUNTER → 2024-12-02 | Outpatient (CLI) | payer MEDICARE, OTHER ==
--- NOTE | 2024-12-03 10:21 | CA ---
Transthoracic Echo Report Name: Nancy Guillen Age: 73 Gender: F : 1950 Exam Date: 12/02/2024 13:19 Exam Location: [place] [facility] Ht (in): 66 Wt (lb): 127 Ordering Physician: Paul Underwood MD Attending/Referring Phys: BRYAN, Yasmine Welding Equipment Repairer Jarek Muñoz, RDCHASE Procedure CPT: Indications: I35.1 10.22 Cardiac Hx: Technical Quality: Good Contrast 1: Total Dose (mL): Contrast 2: Total Dose (mL): MEASUREMENTS (Male / Female) Normal Values 2D ECHO LV Diastolic Diameter PLAX 3.7 cm 4.2 - 5.9 / 3.9 - 5.3 cm LV Systolic Diameter PLAX 2.6 cm IVS Diastolic Thickness 0.9 cm 0.6 - 1.0 / 0.6 - 0.9 cm LVPW Diastolic Thickness 0.9 cm 0.6 - 1.0 / 0.6 - 0.9 cm LV Relative Wall Thickness 0.5 RV Internal Dim ED PLAX 2.8 cm Aortic Root Diameter 2.4 cm LA Systolic Diameter LX 2.6 cm 3.0 - 4.0 / 2.7 - 3.8 cm LV Diastolic Volume MOD 4C 54.5 cm??? LV Systolic Volume MOD 4C 18.9 cm??? LV Ejection Fraction MOD 4C 65.3 % LV Cardiac Index MOD 4C 1437.1 cm???/min???m??? LV Diastolic Length 4C 7.0 cm LV Systolic Length 4C 5.7 cm DOPPLER AI Peak Velocity 467.9 cm/s AI Peak Gradient 87.6 mmHg AI Pressure Half Time 461.7 ms Mitral E Point Velocity 67.0 cm/s Mitral A Point Velocity 79.4 cm/s Mitral E to A Ratio 0.8 MV Deceleration Time 209.6 ms MV E' Velocity 5.0 cm/s Mitral E to MV E' Ratio 13.5 TR Peak Velocity 188.8 cm/s TR Peak Gradient 14.3 mmHg FINDINGS Left Ventricle Left ventricular ejection fraction is estimated at 60-65%. Normal Left ventricular size, wall thickness, systolic function with no obvious regional wall motion abnormalities. Right Ventricle Normal right ventricular size and function. Right ventricular systolic pressure within normal limits. Right Atrium Normal right atrial size. Left Atrium Normal left atrial size. Mitral Valve Structurally normal mitral valve. No mitral stenosis. No mitral regurgitation. Aortic Valve Trileaflet aortic valve. No aortic stenosis. Mild aortic regurgitation. Tricuspid Valve Structurally normal tricuspid valve. No tricuspid stenosis. Trace tricuspid regurgitation. Pulmonic Valve Structurally normal pulmonic valve. No pulmonic stenosis. No pulmonic regurgitation. Pericardium No pericardial effusion. Aorta Normal size aortic root and proximal ascending aorta. CONCLUSIONS Preserved LV size and function Normal RV size and function No structural valvular abnormalities Previewed by: Dr. Jimbo Holliday MD (Electronically Signed) Final Date: 03 December 2024 10:20
== END | disposition home or self-care (01) ==
LOC: RADECHMAIN 13:12
PROVIDERS: ATTEND Family Medicine
DX: I35.1 Nonrheumatic aortic (valve) insufficiency (principal)
CPT/HCPCS: 93306

== ENCOUNTER 2025-04-26 08:41 | Day surgery (SDC) | payer MEDICARE, OTHER ==
[2025-04-21 12:21] VITALS: BMI 20.3
[2025-04-26 10:08] VITALS: TEMP 98.8
[2025-04-26] MEDS: IV FLUID CONTINUATION 1,000 ML IV ONE (10:16)
[2025-04-26] MEDS: LACTATED RINGERS 1,000 ML IV SCH (10:16)
[2025-04-26] MEDS ORDERED: PROPOFOL 10 MG/ML 20 ML VIAL IV ONE (10:23)
--- NOTE | 2025-04-26 10:42 | P.PCN ---
Date of Procedure: 04/26/25 Procedure(s) Performed: BRIEF HISTORY: Patient is a 74-year-old pleasant white female scheduled for an elective colonoscopy as a part of screening for colon cancer. PROCEDURE PERFORMED: Colonoscopy. PREOPERATIVE DIAGNOSIS: Screening for colon cancer. IV sedation per Anesthesia. PROCEDURE: After informed consent was obtained, the patient, was brought into the endoscopy unit. IV sedation was administered by Anesthesia under continuous monitoring. Digital rectal examination was normal. Initially the Olympus CF-160 flexible video colonoscope was then inserted in the rectum, gradually advanced into the cecum without any difficulty. Careful examination was performed as the scope was gradually being withdrawn. Ileocecal valve and the appendiceal orifice were visualized and appeared normal. Prep was excellent. Mucosa of the cecum, ascending colon, transverse colon, descending colon, sigmoid colon, and rectum appeared normal. Retroflexion was performed in the rectum and no lesions were seen. The patient tolerated the procedure well. IMPRESSION: Normal-appearing colon from rectum to cecum no evidence of colorectal neoplasia. RECOMMENDATIONS: Findings of this examination were discussed with the patient as well as her family. She was advised to have repeat screening colonoscopy in 10 years based on her overall medical condition...
[2025-04-26 11:09] VITALS: BP 150/73; PULSE 84; RESP 16
== END 2025-04-26 11:32 | disposition home or self-care (01) ==
LOC: ORWHC2ENDO 08:41
PROVIDERS: ATTEND Internal Medicine Gastroenterology
DX: Z12.11 Encounter for screening for malignant neoplasm of colon (principal); I10 Essential (primary) hypertension; E78.5 Hyperlipidemia, unspecified; N28.9 Disorder of kidney and ureter, unspecified; Z79.899 Other long term (current) drug therapy
CPT/HCPCS: J2704; G0121